=== PATIENT | female | born 1995 | race Caucasian/White ===

== ENCOUNTER 2018-01-27 08:10 | Emergency (ER) | payer BC ==
[~2018-01-27] VITALS: Ht 165.1 cm; Wt 59.9 kg
[~2018-01-27 08:10] MED LIST: CEPH250C PO; DESO1TAB4 PO; LYSI100014 PO; METR500T21 PO; VALA500T4 PO
--- OUTSIDE RECORDS SUMMARY | 2018-01-27 08:14 | XMS REPORT | Continuity of Care Document ---
Author Author [facility] Address Unknown Phone Unavailable Allergies Active Description Code Type Severity Reaction Onset Reported/Identified Relationship to Patient Clinical Status Yes No Known Drug Allergies [id number] Drug Allergy Unknown N/A 01/09/2018 Medications There is no data. Problems There is no data. Procedures There is no data. Results Test Result Range Bacterial blood culture - 01/09/18 22:42 Bacterial blood culture NG NRG Bacterial blood culture - 01/09/18 23:00 Bacterial blood culture NG NRG Bacterial blood culture - 01/10/18 03:24 Bacterial blood culture NG NRG Bacterial blood culture - 01/10/18 03:38 Bacterial blood culture NG NRG Encounters ACCT No. Visit Date/Time Discharge Status Pt. Type Provider Facility Loc./Unit Complaint [id number] 10/12/2015 10:08:10 10/12/2015 23:59:59 CLS Outpatient [facility] [id number] 01/10/2018 08:18:00 01/11/2018 18:42:00 DIS Inpatient NICOLE GUZMAN, MARINA Santos [facility] 4TH SEPSIS,UTI,DEHYDRATION
[2018-01-27 08:36] LABS: BILIRUBIN,URINE NEGATIVE (NEGATIVE); CLARITY,URINE SLIGHTLY CLOUDY; COLOR,URINE YELLOW; GLUCOSE, URINE (UA) NEGATIVE (NEGATIVE); KETONES,URINE NEGATIVE (NEGATIVE); LEUKOCYTE ESTERASE ,URINE 2+ (NEGATIVE); NITRITE,URINE NEGATIVE (NEGATIVE); PH,URINE 6.5 (5-9); PROTEIN,URINE NEGATIVE (NEGATIVE); UROBILINOGEN,URINE NORMAL (NORMAL)
[2018-01-27 08:53] LABS: BACTERIA,URINE FEW /HPF; RBC,URINE 0-2 /HPF
[2018-01-27 09:11] LABS: BASOPHILS # (AUTO) 0.1 10^3/uL (0.0-0.1); BASOPHILS % (AUTO) 2 % (0-10); EOSINOPHILS # (AUTO) 0.2 10^3/uL (0.0-0.3); EOSINOPHILS % (AUTO) 3 % (0-10); HEMATOCRIT 41 % (35-52); HEMOGLOBIN 13.4 G/DL (11.5-16.0); LYMPHOCYTES # (AUTO) 1.4 X 10^3 (1.0-4.0); LYMPHOCYTES % (AUTO) 27 % (12-44); MEAN CORPUSCULAR HEMOGLOBIN 26 PG (25-34); MEAN CORPUSCULAR HGB CONC 33 G/DL (32-36); MEAN CORPUSCULAR VOLUME 79 FL (80-99); MEAN PLATELET VOLUME 8.5 FL (7.4-10.4); MONOCYTES # (AUTO) 0.7 X 10^3 (0.0-1.0); MONOCYTES % (AUTO) 13 % (0-12); NEUTROPHILS # (AUTO) 2.9 X 10^3 (1.8-7.8); NEUTROPHILS % (AUTO) 56 % (42-75); PLATELET COUNT 530 10^3/uL (130-400); RED BLOOD COUNT 5.15 10^6/uL (4.35-5.85); RED CELL DISTRIBUTION WIDTH 15.8 % (10.0-14.5); WHITE BLOOD COUNT 5.1 10^3/uL (4.3-11.0)
[2018-01-27 09:27] LABS: BUN/CREATININE RATIO 9; CALCIUM 9.3 MG/DL (8.5-10.1); CARBON DIOXIDE 22 MMOL/L (21-32); CHLORIDE 107 MMOL/L (98-107); CREATININE SERUM 0.74 MG/DL (0.60-1.30); GFR ESTIMATED > 60; GLUCOSE 85 MG/DL (70-105); POTASSIUM 3.8 MMOL/L (3.6-5.0); SODIUM 139 MMOL/L (135-145)
--- NOTE | 2018-01-27 09:52 | ED GU-Female ---
General Chief Complaint: -Female Stated Complaint: UTI SYMPTOMS Nursing Triage Note: PT CO OF POSSIBLE UTI, PT STATES HAD PYLONEPHRITIS LAST MONTH, FINISHED ANTIBIOTIC AND FEELS LIKE MAYBE GETTING ANOTHER UTI. DENIES FEVER. 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 She was hospitalized here approximately 10 days ago with a urinary tract infection and severe sepsis. Allergies and Home Medications Allergies Coded Allergies: No Known Drug Allergies (Unverified , 01/10/18) Home Medications Ciprofloxacin HCl 500 Mg Tablet, 500 MG PO TWICE A DAY Prescribed by: MARINA RIVERA on 01/27/18 0957 Desogestrel-Ethinyl Estradiol 1 Each Tablet, 1 TAB PO HS, (Reported) Lysine 1,000 Mg Tablet, 1,000 MG PO HS, (Reported) Valacyclovir HCl 500 Mg Tablet, 500 MG PO HS, (Reported) Patient Home Medication List Home Medication List Reviewed: Yes Review of Systems Review of Systems Constitutional: other (dysuria) Past Babfcsv-Elnyhc-Fbkhoo Hx Patient Social History Alcohol Use: Denies Use Recreational Drug Use: No Smoking Status: Never a Smoker Recent Foreign Travel: No Contact w/Someone Who Travel: No Recent Infectious Disease Expo: No Recent Hopitalizations: Yes (UTI) Physical Abuse: No Sexual Abuse: No Immunizations Up To Date Tetanus Booster (TDap): Unknown Seasonal Allergies Seasonal Allergies: No Past Medical History Surgeries: No Respiratory: No Cardiac: No Neurological: No : No Last Menstrual Period: Jan 18, 2018 Reproductive Disorders: No Genitourinary: Yes (REFLUX) Kidney Infection, UTI-Chronic Gastrointestinal: No Musculoskeletal: No Endocrine: No HEENT: No Cancer: No Psychosocial: No Integumentary: Yes (COLD SORES) Blood Disorders: No Family Medical History Myocardial infarction 21 FATHER, Onset:30's - 40 Physical Exam Vital Signs Capillary Refill : Less Than 3 Seconds Height, Weight, BMI Height: 5'5.00" Weight: 132lbs. 8.0oz. [id number]; 22.1 BMI Method:Stated General Appearance: no apparent distress HEENT: normal ENT inspection Neck: full range of motion Cardiovascular: normal peripheral pulses, regular rate, rhythm, no edema, no gallop, no JVD, no murmur Respiratory: chest non-tender, lungs clear, normal breath sounds, no respiratory distress, no accessory muscle use, respiratory distress Gastrointestinal: normal bowel sounds, non tender, soft, no organomegaly Back: no CVA tenderness Progress/Results/Core Measures Suspected Sepsis Recent Fever Within 48 Hours: No Infection Criteria Present: None New/Unexplained Altered Menta: No Sepsis Screen: No Definite Risk SIRS Temperature:97.7 Pulse: 106 Respiratory Rate: 18 Blood Pressure 130 /99 Mean: 109 Results/Orders Lab Results My Orders Vital Signs/I&O Capillary Refill : Less Than 3 Seconds Blood Pressure Mean: 109 Point of Care Testing Urine -Bedside: Negative Departure Communication (Admissions) UA showed 10-25 WBCs per high-powered field. It has been plated and will be cultured. The previous culture was obtained after antibiotics had been started and showed 3 gram-positive in small amounts. She just completed a week's course of Keflex. Impression Primary Impression: Urinary tract infection Disposition: 01 HOME, SELF-CARE Condition: Stable/Unchanged Departure-Patient Inst. Decision time for Depature: 09:56 Referrals: [facility] (PCP/Family) Primary Care Physician Patient Instructions: Urinary Tract Infection, Adult (DC) Add. Discharge Instructions: All discharge instructions reviewed with patient and/or family. Voiced understanding. Take Cipro as directed. Urinary culture and sensitivity should be available at least by 01/29. Call critical access hospital to confirm sensitivity. Scripts Ciprofloxacin HCl (Cipro) 500 Mg Tablet 500 MG PO TWICE A DAY, #10 TAB Prov: MARINA RIVERA MD 01/27/18 MARINA RIVERA MD Jan 27, 2018 09:52
[2018-01-27] MEDS ORDERED: CIPR-225 PO (09:57)
[2018-01-27 10:05] VITALS: BP 130/99
== END 2018-01-27 10:15 | disposition home or self-care (01) ==
LOC: EDUNIT# 08:10 → ER 08:11
DX: N39.0 Urinary tract infection, site not specified (principal); Z86.19 Personal history of other infectious and parasitic diseases; Z87.448 Personal history of other diseases of urinary system
CPT/HCPCS: 36415; 80048; 81000; 84703; 85025; 87088; 99282

== ENCOUNTER → 2018-03-21 | Outpatient (CLI) | payer BC ==
[~2018-03-21] MED LIST changes: +CIPR-225 PO; +METR-197 PO; -METR500T21 PO
--- NOTE | 2018-03-21 17:34 | Diagnostic Imaging Report ---
PROCEDURE: CT abdomen and pelvis without contrast. TECHNIQUE: Multiple contiguous axial images were obtained through the abdomen and pelvis without the use of intravenous contrast. INDICATION: Recurrent UTIs with left flank pain. FINDINGS: Noncontrasted images show no evidence of renal calculi. Renal outlines are smooth. There is no evidence of hydronephrosis. The ureters are not dilated. No evidence of ureteral calculi. The bladder is not distended. There are no bladder calculi. There are a few phleboliths in the pelvis. Uterus is not enlarged. There are no adnexal masses. Bowel gas pattern appears normal. Appendix is not enlarged. No evidence of diverticulitis. No evidence of bowel obstruction. No intra-abdominal adenopathy of pathologic size. The lung bases are clear. The liver appears normal. Bile ducts are not dilated. Pancreas is not enlarged. Spleen is normal. Adrenal glands are normal. No bony lesions. IMPRESSION: 1. No evidence of renal calculi or obstruction. 2. Bladder is not distended. 3. No pelvic masses. Colon appears normal. Dictated by: Dictated on workstation # [id number]
== END ==
LOC: RAD 16:44
PROVIDERS: ATTEND Urology
DX: N39.0 Urinary tract infection, site not specified (principal)
CPT/HCPCS: 74176